=== PATIENT | female | born 1935 | race Two or more races ===

== ENCOUNTER 2019-05-24 14:05 | Emergency (ER) | payer OTHER ==
[~2019-05-24] VITALS: Ht 149.9 cm; Wt 51.7 kg
[2019-05-24 14:48] LABS: Basophils # (auto) 0 uL; Basophils % (auto) 0.4 % (0.0-2.0); Eosinophils # (auto) 0 uL; Eosinophils % (auto) 0.1 % (0.0-7.0); Hematocrit 41.1 % (36.0-46.0); Hemoglobin 13.9 g/dL (12.2-16.2); Lymphocytes # (auto) 1.3 uL; Lymphocytes % (auto) 12.4 % (10.0-50.0); Mean Corpuscular Hemoglobin 30.6 pg (28.0-32.0); Mean Corpuscular Hgb Conc. 33.9 g/dL (32.0-36.0); Mean Corpuscular Volume 90.4 fL (80.0-100.0); Monocytes # (auto) 1.3 uL; Monocytes % (auto) 12.5 % (0.0-12.0); Neutrophils # (auto) 7.9 uL; Neutrophils % (auto) 74.6 % (37.0-80.0); Platelet Count (auto) 234 10^3/uL (140-450); Red Blood Cells 4.54 10^6/uL (4.0-5.20); Red Cell Distribution Width 12.5 % (11.8-14.3); White Blood Cell 10.6 10^3/uL (4.4-10.8)
[2019-05-24 15:05] LABS: Albumin 3.3 g/dL (3.4-5.0); Anion Gap 8 (5-15); Blood Urea Nitrogen 14 mg/dL (7-18); Calcium 9.2 mg/dL (8.5-10.1); Carbon Dioxide 27 mmol/L (21-32); Chloride 99 mmol/L (98-107); Glucose 130 mg/dL (74-106); Potassium 3.8 mmol/L (3.5-5.1); Sodium 134 mmol/L (136-145)
[2019-05-24 15:11] LABS: Alanine Aminotransferase 24 U/L (13-56); Alkaline Phosphatase 93 U/L (45-117); Aspartate Aminotransferase 19 U/L (15-37); BUN/Creatinine Ratio 22.6; Bilirubin, Total 1.1 mg/dL (0.2-1.0); GFR African American 119 mL/min; GFR Non-African American 98 mL/min; Total Protein 7.3 g/dL (6.4-8.2)
[2019-05-24 16:58] LABS: Urine Bacteria FEW /hpf (None Seen); Urine Blood TRACE /uL (Negative); Urine Mucus FEW (None Seen); Urine Specific Gravity 1.018 (1.001-1.035); Urine WBC 5 /hpf (0 - 5)
[2019-05-24] MEDS ORDERED: MORPHINE SULF INJ 2 MG/ML SYRINGE 1ML IV ONE (17:15)
[2019-05-24] MEDS ORDERED: cefTRIAXone 1GM/50ML D5W 50 ML IV ONE (17:15)
[2019-05-24] MEDS ORDERED: ONDANSETRON HCL 4 MG/2 ML VIAL IV ONE (17:15)
[2019-05-24] MEDS ORDERED: SODIUM CHLORIDE 0.9% 500 ML IV ONE (17:15)
[2019-05-24 17:48] VITALS: BP 144/56
== END 2019-05-24 19:37 | disposition home or self-care (01) ==
LOC: ER 14:05
DX: N39.0 Urinary tract infection, site not specified (principal); Z90.49 Acquired absence of other specified parts of digestive tract; Z90.710 Acquired absence of both cervix and uterus
CPT/HCPCS: 36415; 72100; 80053; 81001; 83880; 84484; 85025; 93005; 96365; 96375; 99284; J0696; J2270; J2405; J7040

== ENCOUNTER 2019-05-26 13:29 | Inpatient (IN) | payer OTHER ==
[~2019-05-26] VITALS: Ht 149.9 cm; Wt 55.2 kg
[2019-05-26 15:12] LABS: Basophils # (auto) 0 uL; Basophils % (auto) 0.4 % (0.0-2.0); Eosinophils # (auto) 0 uL; Eosinophils % (auto) 0.2 % (0.0-7.0); Hematocrit 40.8 % (36.0-46.0); Hemoglobin 13.7 g/dL (12.2-16.2); Lymphocytes # (auto) 1.1 uL; Lymphocytes % (auto) 11.4 % (10.0-50.0); Mean Corpuscular Hemoglobin 30.4 pg (28.0-32.0); Mean Corpuscular Hgb Conc. 33.6 g/dL (32.0-36.0); Mean Corpuscular Volume 90.5 fL (80.0-100.0); Monocytes # (auto) 1.1 uL; Monocytes % (auto) 11.2 % (0.0-12.0); Neutrophils # (auto) 7.6 uL; Neutrophils % (auto) 76.8 % (37.0-80.0); Platelet Count (auto) 275 10^3/uL (140-450); Red Blood Cells 4.51 10^6/uL (4.0-5.20); Red Cell Distribution Width 12.4 % (11.8-14.3); White Blood Cell 9.9 10^3/uL (4.4-10.8)
[2019-05-26 15:34] LABS: Albumin 3.2 g/dL (3.4-5.0); Calcium 9.7 mg/dL (8.5-10.1); Potassium 3.6 mmol/L (3.5-5.1)
[2019-05-26 15:38] LABS: BUN/Creatinine Ratio 21.4; Bilirubin, Total 0.6 mg/dL (0.2-1.0); Total Protein 7.4 g/dL (6.4-8.2)
[2019-05-26 15:58] LABS: Urine Bacteria FEW /hpf (None Seen); Urine Blood Negative /uL (Negative); Urine Specific Gravity 1.008 (1.001-1.035); Urine WBC <1 /hpf (0 - 5)
[2019-05-26] MEDS ORDERED: KETOROLAC TROMETH 30 MG/ML 1ML VIAL IV ONE (16:45)
[2019-05-26] MEDS ORDERED: cefTRIAXone 1GM/50ML D5W 50 ML IV ONE (18:00)
--- NOTE | 2019-05-26 19:30 | NUR ---
Opening Shift Note Assumed care of patient, awake and alert. Oxygen at 4L NC. Sitting in bed watching TV. Very talkative. ELIM IRA. Skin clear. Bactroban sent up by pharmacy will start tonight. Infusing antibiotics per order. Instructed on POC and to call for assist PRN, will continue to monitor for changes Q1hr and PRN. Addendum: 05/27/19 at 0745 by DOMITILA CALDERON RN wrong patient. Note is for 278B
[2019-05-26] MEDS ORDERED: TEMAZEPAM 15 MG CAP PO PRN (21:30)
[2019-05-26] MEDS ORDERED: ACETAMINOPHEN 325 MG TAB PO PRN (21:30)
[2019-05-26] MEDS ORDERED: HYDROcodone-ACET 5/325MG TAB PO PRN (21:30)
[2019-05-26] MEDS ORDERED: DOCUSATE SOD 100 MG CAP PO PRN (21:30)
[2019-05-26] MEDS ORDERED: IOHEXOL 300 MG/ML 100ML BOTTLE IJ ONE (21:35)
[2019-05-26] MEDS ORDERED: FAMOTIDINE 20 MG TAB PO SCH ×2 (22:00)
[2019-05-27] MEDS ORDERED: LISI40TA PO (00:31)
[2019-05-27 00:32] VITALS: BP 155/69
[2019-05-27 05:00] VITALS: BP 124/63
--- NOTE | 2019-05-27 07:30 | NUR ---
CT called and informed me the patient needed a 20 g IV above the wrist for IV contrast. Started new IV to R AC. IV to L GRIFFIN patent and saline locked. Notified CT patient was ready. Breakfast bedside and patient aware not to eat until after test. Endorsed to Tala ESPINOZA
--- NOTE | 2019-05-27 07:30 | NUR ---
Opening Shift Note Assumed care of patient, awake and alert. No S/S of distress/SOB or pain. Instructed on POC and to call for assist PRN, will continue to monitor for changes Q1hr and PRN.
[2019-05-27 08:00] VITALS: BP 135/57
[2019-05-27 09:00] VITALS: BP 138/57
[2019-05-27] MEDS ORDERED: cefTRIAXone 1GM/50ML D5W 50 ML IV SCH (09:00)
[2019-05-27] MEDS ORDERED: LISINOPRIL 20 MG TAB PO SCH (10:00)
[2019-05-27] MEDS ORDERED: IOHEXOL 300 MG/ML 100ML BOTTLE IJ ONE (10:16)
[2019-05-27 12:32] VITALS: BP 155/66
[2019-05-27] MEDS ORDERED: CEPH-37 PO (14:28)
--- NOTE | 2019-05-27 14:30 | NUR ---
Dr. Mone Kate in to see patient as primary physician.
[2019-05-27 15:51] VITALS: BP 138/57
--- NOTE | 2019-05-27 17:20 | NUR ---
Discharge planning per consult, patient has orders to dc with home health for a safety evaluation. Referral sent to [facility] Placed a follow up call, spoke with [facility] and was advised that they will accept his patient. Request for auth sent to [facility]. Addendum: 05/27/19 at 1726 by ARGELIA ELEUTERIO SS Amended: Links added. Addendum: 05/28/19 at 1006 by ARGELIA SAMANOO SS Auth for home health obtained from [id number]
== END 2019-05-27 16:35 | disposition home health service (06) | DRG 690 ==
LOC: ER 13:29 → OVERFLOW 13:30 → WEST WING 05-27 00:04
PROVIDERS: ADMIT Nurse Practitioner; ATTEND Internal Medicine
DX: N39.0 Urinary tract infection, site not specified (principal); K86.2 Cyst of pancreas; K86.9 Disease of pancreas, unspecified; I10 Essential (primary) hypertension; M17.0 Bilateral primary osteoarthritis of knee; K57.30 Diverticulosis of large intestine without perforation or abscess without bleeding; Z82.49 Family history of ischemic heart disease and other diseases of the circulatory system; Z90.49 Acquired absence of other specified parts of digestive tract; Z90.710 Acquired absence of both cervix and uterus
CPT/HCPCS: 36415; 71046; 74176; 80053; 81001; 85025; 87086; 93005; 96365; 96366; G0378; J0696; J1885

== ENCOUNTER 2022-06-07 09:55 | Emergency (ER) | payer OTHER ==
[~2022-06-07] VITALS: Ht 149.9 cm; Wt 53.5 kg
[~2022-06-07 09:55] MED LIST: CEPH-37 PO; LISI40TA11 PO
[2022-06-07 10:35] VITALS: BP 154/75
[2022-06-07] MEDS ORDERED: ACETAMINOPHEN 325 MG TAB PO ONE (10:45)
[2022-06-07] MEDS ORDERED: ACET-1080 PO (12:31)
== END 2022-06-07 12:33 | disposition home or self-care (01) ==
LOC: ER 09:55
DX: R51.9 Headache, unspecified (principal); M50.00 Cervical disc disorder with myelopathy, unspecified cervical region; M50.10 Cervical disc disorder with radiculopathy, unspecified cervical region; I10 Essential (primary) hypertension; Z90.89 Acquired absence of other organs; Z90.710 Acquired absence of both cervix and uterus
CPT/HCPCS: 70450; 72125; 93005

== ENCOUNTER 2025-01-27 17:18 | Emergency (ER) | payer OTHER ==
[~2025-01-27] VITALS: Ht 147.3 cm; Wt 46.2 kg
[~2025-01-27 17:18] MED LIST changes: +ACET-1080 PO; -LISI40TA11 PO; +LISI40TA16 PO
--- NOTE | 2025-01-27 17:34 | ED.PDOC ---
History of Present Illness HPI Comments 89-year-old female presents with a chief complaint of hematoma s/p mechanical fall. Patient states that she was outside watering and tripped over the water hose. Patient now is presenting with a large hematoma to the left side of her forehead. Patient denies any lose of consciousness. Patient does mention pain to the hematoma area. Vital signs were stable. Time Seen by MD: 17:29 Primary Care Provider: WENDIE Reviewed Notes: Nurses Notes, Medications, Allergies Allergies: Coded Allergies: NO KNOWN ALLERGIES (Unverified , 05/24/19) Home Meds Active Scripts Acetaminophen (Tylenol 8 Hour Arthritis) 650 Mg Tab, 650 MG PO TID, #30 TAB Prov:RANULFO REYES 06/07/22 Cephalexin (Keflex) 500 Mg Cap, 500 MG PO Q6HR, #28 CAP Prov:CHAVEZ BURROUGHS MD 05/27/19 Reported Medications Lisinopril (Lisinopril) 40 Mg Tab, 40 MG PO DAILY for 30 Days, MG 05/27/19 Information Source: Patient Mode of Arrival: Wheelchair Severity: Moderate Timing: Minutes Duration: Since onset Prehospital treatment: None Past Medical History PAST MEDICAL HISTORY: HTN, UTI'S Surgical History: Appendectomy, Hysterectomy SERVICE [employer] CONSULTANT History: No Pertinent SERVICE LOSS CONTROL CONSULTANT History Family History Family History: Family hx of HTN Social History Smoker: Non-Smoker Alcohol: Denies ETOH Use Drugs: Denies Drug Use Lives In: Home Constitutional: denies: chills, diaphoresis, fatigue, fever, malaise, sweats, weakness, others EENTM: reports: others (Left-sided head trauma); denies: blurred vision, double vision, ear bleeding, ear discharge, ear drainage, ear pain, ear ringing, eye pain, eye redness, hearing loss, mouth pain, mouth swelling, nasal discharge, nose bleeding, nose congestion, nose pain, photophobia, tearing, throat pain, throat swelling, voice changes Respiratory: denies: cough, hemoptysis, orthopnea, SOB at rest, shortness of breath, SOB with excertion, stridor, wheezing, others Cardiovascular: denies: chest pain, dizzy spells, diaphoresis, Dyspnea on exertion, edema, irregular heart beat, left arm pain, lightheadedness, palpitations, PND, syncope, others Gastrointestinal: denies: abdomen distended, abdominal pain, blood streaked bowels, constipated, diarrhea, dysphagia, difficulty swallowing, hematemesis, melena, nausea, poor appetite, poor fluid intake, rectal bleeding, rectal pain, vomiting, others Genitourinary: denies: abnormal vagina bleeding, burning, dyspareunia, dysuria, flank pain, frequency, hematuria, incontinence, pain, , vagina discharge, urgency, others Neurological: denies: dizziness, fainting, headache, left sided numbness, left sided weakness, numbness, paresthesia, pre-existing deficit, right sided numbness, right sided weakness, seizure, speech problems, tingling, tremors, weakness, others Musculoskeletal: denies: back pain, gout, joint pain, joint swelling, muscle pain, muscle stiffness, neck pain, others Integumetry: reports: bruises; denies: change in color, change in hair/nails, dryness, laceration, lesions, lumps, rash, wounds, others Allergic/Immunocompromised: denies: Difficulty Healing, Frequent Infections, Hives, Itching, others Hematologic/Lymphatic: denies: anemia, blood clots, easy bleeding, easy bruising, swollen glands, others Endocrine: denies: excessive hunger, excessive sweating, excessive thirst, excessive urination, flushing, intolerance to cold, intolerance to heat, unexplained weight gain, unexplained weight loss, others Psychiatric: denies: anxiety, bipolar disorder, depression, hopeless, panic disorder, schizophrenia, sleepless, suicidal, others All Other Systems: Reviewed and Negative Physical Exam General Appearance: Moderate Distress ([id number] distress due to left- sided headache pain concerns), Normal HEENT: Head (Patient displays a smaller Lyme sized hematoma to the lateral aspect of her left eyebrow region. No skull depressions or deformities noted. No change in vision. Diffusely tender to palpation.), Normal ENT Inspection, Pharynx Normal, TMs Normal Neck: Full Range of Motion, Non-Tender, Normal, Normal Inspection Respiratory: Chest Non-Tender, Lungs Clear, No Accessory Muscle Use, No Respiratory Distress, Normal Breath Sounds Cardiovascular: No Edema, No JVD, No Murmur, No Gallop, Normal Peripheral Pulses, Regular Rate/Rhythm Breast Exam: Deferred Gastrointestinal: No Organomegaly, Non Tender, No Pulsatile Mass, Normal Bowel Sounds, Soft Genitalia: Deferred Pelvic: Deferred Rectal: Deferred Extremities: No calf tenderness, Normal capillary refill, Normal inspection, Normal range of motion, Non-tender, No pedal edema Musculoskeletal : Apperance: Normal Neurologic: Alert, No Motor Deficits, Normal Affect, Normal Mood, No Sensory Deficits Cerebellar Function: NOT DONE Reflexes: NOT DONE Skin: Dry, Normal Color, Warm Lymphatic: No Adenopathy Was a procedure done? Was a procedure done?: No Differential Dx Considerations may include: Subarachnoid hemorrhage, subdural hematoma, skull fracture, orbital fracture, hematoma, head trauma X-Ray, Labs, Meds, VS Vital Signs Date Time Temp Pulse Resp B/P (MAP) Pulse Ox O2 Delivery O2 Flow Rate FiO2 01/27/25 18:09 78 18 95 Room Air 01/27/25 18:09 98.5 78 18 169/77 (107) 95 98.5 01/27/25 17:38 98.3 106 18 157/84 (108) 96 98.3 Current Medications Medications (Trade) Dose Ordered Sig/Jordana Route Start Time Stop Time Status Last Admin Acetaminophen/ Hydrocodone Bitart ([place] 5/325MG Tab) 1 tab ONCE ONCE PO 01/27/25 17:45 01/27/25 17:46 DC 01/27/25 18:09 X-Ray, Labs, Meds, VS Comment All studies performed in the ED were evaluated by me personally. CT of the head was unremarkable for any subarachnoid hemorrhage or intracranial concerns. No skull fractures noted. Patient unfortunately sustained a hematoma. Advised pain medication and ice therapy. Time of 1ST Reevaluation: 18:36 Reevaluation 1ST: Improved Consultation: PCP Patient Education/Counseling: Diagnosis, Treatment, Need For Follow Up Family Education/Counseling: Diagnosis, Treatment, Need For Follow Up SEPSIS Sepsis Screen Recent Procedure: No On Antibiotic Therapy: No Respiratory Rate >20: No Heart Rate >90: No Temp<36 C (96.8 F) or >38.3 C: No SBP <90 or MAP <65 mmHG: No New Acute Mental Status Change: No Is the patient on CPAP, BIPAP,: No Physician Orders Head Without Contrast (01/27/25 17:31) Vital Signs Date Time Temp Pulse Resp B/P (MAP) Pulse Ox O2 Delivery O2 Flow Rate FiO2 01/27/25 18:09 78 18 95 Room Air 01/27/25 18:09 98.5 78 18 169/77 (107) 95 98.5 01/27/25 17:38 98.3 106 18 157/84 (108) 96 98.3 Medications Medications Dose Ordered Sig/Jordana Route Start Time Stop Time Status Last Admin Dose Admin Acetaminophen/ Hydrocodone Bitart 1 tab ONCE ONCE PO 01/27/25 17:45 01/27/25 17:46 DC 01/27/25 18:09 Departure 1 Departure Time of Disposition: 18:37 Impression: Primary Impression: Head trauma Additional Impressions: Concussion Hematoma Disposition: 01 HOME / SELF CARE / HOMELESS Condition: Stable Additional Instructions: Advised patient utilize pain medication as needed as well as ice therapy. e-Prescriptions Hydrocodone-Acetaminophen (Hydrocodone Bitartrate/AC 5-325 mg) 1 Tab Tab 1 TAB PO Q8HP PRN, #10 TAB Prov: GRACIE PENDLETON PAC 01/27/25 Discharged With: Self, Friend Critical Care Note Critical Care Time?: No Stability Stability form required: No Heart Score Heart Score: Heart Score Response (Comments) Value History N/A 0 EKG N/A 0 Age N/A 0 Risk Factors N/A 0 Troponin N/A 0 Total 0 I personally scribed for GRACIE PENDLETON PAC ([email or web address]) on 01/27/25 at 17:34. Electronically submitted by Williams Santiago ([email or web address]). GRACIE PENDLETON PAC Jan 27, 2025 17:34
[2025-01-27] MEDS: HYDROcodone-ACET 5/325MG TAB PO ONE (18:09)
--- NOTE | 2025-01-27 18:21 | DVH ---
CT HEAD WITHOUT CONTRAST Indication: Fall/left-sided facial/head trauma EXAM DATE: 01/27/2025 05:43 PM COMPARISON: HEAD WITHOUT CONTRAST on DOS: 06/07/22 TECHNIQUE: CT of the head without intravenous contrast. RADIATION DOSE: CTDIvol: 54.3 mGy, DLP: 987.49 mGy*cm FINDINGS: There is no intracranial hemorrhage. There is no extra-axial fluid, mass, mass effect or midline shif t. The ventricles are midline and normal in size. Basilar cisterns are patent. There are mild periven tricular and subcortical white matter chronic microvascular ischemic changes. Large left frontal scal p hematoma. Mild global cerebral volume loss The paranasal sinuses and mastoids are well-pneumatized. Imaged portion of the orbits are unremarkabl e. IMPRESSION: No intracranial hemorrhage or mass effect. Large left frontal scalp hematoma. Mild chronic microvascular ischemic changes.
[2025-01-27] MEDS ORDERED: HYDR-4902 PO (18:38)
[2025-01-27 19:13] VITALS: BP 147/75; PULSE 80; RESP 16; TEMP 98.5; O2SAT 95
== END 2025-01-27 19:25 | disposition home or self-care (01) ==
LOC: ER 17:18
DX: S06.0X0A Concussion without loss of consciousness, initial encounter (principal); S00.83XA Contusion of other part of head, initial encounter; S00.12XA Contusion of left eyelid and periocular area, initial encounter; I10 Essential (primary) hypertension; Z90.710 Acquired absence of both cervix and uterus; Z87.440 Personal history of urinary (tract) infections; Z90.89 Acquired absence of other organs; Z79.899 Other long term (current) drug therapy; W01.0XXA Fall on same level from slipping, tripping and stumbling without subsequent striking against object, initial encounter; Y93.89 Activity, other specified; Y92.89 Other specified places as the place of occurrence of the external cause; Y99.8 Other external cause status
CPT/HCPCS: 70450